=== PATIENT | female | born 1980 | race Caucasian/White ===

== ENCOUNTER 2017-07-23 13:17 | Inpatient (IN) | payer MEDICARE, MEDICAID ==
[~2017-07-23] VITALS: Ht 154.9 cm; Wt 56.2 kg
[~2017-07-23 13:17] MED LIST: ABILIFY; NEURONTIN; PROZAC; XANAX
[2017-07-23 14:09] VITALS: BP 121/67
[2017-07-23] MEDS ORDERED: ZOLPIDEM TARTRATE 10 MG TABLET PO PRN (14:15)
[2017-07-23] MEDS ORDERED: OXCA300T PO (14:31)
[2017-07-23] MEDS ORDERED: CLON.5 PO (14:31)
[2017-07-23] MEDS ORDERED: GABA-529 PO (14:33)
[2017-07-23] MEDS: LORazepam 1 MG TABLET PO PRN (14:48)
[2017-07-23] MEDS: HALOPERIDOL 5 MG TABLET PO PRN (14:48)
[2017-07-23] MEDS: PALIPERIDONE 3 MG ER TABLET PO SCH (17:33)
[2017-07-23 17:37] VITALS: BP 123/65
[2017-07-24 07:09] VITALS: BP 119/67
[2017-07-24 07:40] LABS: BASOPHILS # (AUTO) 0.07 K/uL (0.00-0.20); BASOPHILS % (AUTO) 0.8 % (0.0-2.0); EOSINOPHILS # (AUTO) 0.21 K/uL (0.00-0.70); EOSINOPHILS % (AUTO) 2.52 % (1.0-6.0); HEMATOCRIT 38.8 % (36-46); HEMOGLOBIN 12.7 g/dL (12.0-16.0); LYMPHOCYTES # (AUTO) 3.4 K/uL (1.0-4.8); LYMPHOCYTES % (AUTO) 40.9 % (22.0-44.0); MEAN CORPUSCULAR HEMOGLOBIN 31.6 pg (26.0-34.0); MEAN CORPUSCULAR HGB CONC 32.7 G/dL (31.0-37.0); MEAN CORPUSCULAR VOLUME 97 fL (80-100); MONOCYTES # (AUTO) 0.4 K/uL (0.1-1.0); MONOCYTES % (AUTO) 4.9 % (2.0-9.0); NEUTROPHILS # (AUTO) 4.2 K/uL (1.8-7.7); NEUTROPHILS % (AUTO) 50.9 % (40.0-70.0); PLATELET COUNT (AUTO) 425 K/uL (150-450); RED BLOOD CELL COUNT(AUTO) 4.02 MIL/uL (4.00-5.20); RED CELL DISTRIBUTION WIDTH 14.1 % (11.5-14.5); WHITE BLOOD COUNT (AUTO) 8.3 K/uL (4.5-11.0)
[2017-07-24] MEDS: HALOPERIDOL 5 MG TABLET PO PRN ×2 (08:10→17:11)
[2017-07-24] MEDS: PALIPERIDONE 3 MG ER TABLET PO SCH ×2 (08:10→16:43)
[2017-07-24] MEDS: LORazepam 1 MG TABLET PO PRN ×2 (08:10→16:43)
[2017-07-24 08:13] LABS: HEMOGLOBIN A1C 5.1 % (4.5-6.2)
[2017-07-24 08:48] LABS: ALANINE AMINOTRANSFERASE 20 U/L (12-78); ALBUMIN 3.1 g/dL (3.4-5.0); ANION GAP 6 mmol/L (8-16); ASPARTATE AMINOTRANSFERASE 10 U/L (15-37); BILIRUBIN,TOTAL 0.4 mg/dL (0.1-1.0); CARBON DIOXIDE 30 mmol/L (22-29); CHLORIDE 104 mmol/L (98-107); CHOL/HDL RATIO 4.9 (3.9-5.7); CREATININE 0.83 mg/dL (0.60-1.30); GLOMERULAR FILTR. RATE CALC > 60 mL/min (>60); POTASSIUM 4.8 mmol/L (3.5-5.1); SODIUM SERUM 140 mmol/L (136-145); THYROID STIMULATING HORMONE 0.94 uIU/mL (0.36-3.74); TOTAL PROTEIN, SERUM 6.7 g/dL (6.4-8.2); UREA NITROGEN, BLOOD 18 mg/dL (7-18)
[2017-07-24 16:00] VITALS: BP 101/79
[2017-07-25 06:49] VITALS: BP 100/60
[2017-07-25] MEDS: HALOPERIDOL 5 MG TABLET PO PRN (08:20)
[2017-07-25] MEDS: LORazepam 1 MG TABLET PO PRN ×2 (08:20→18:58)
[2017-07-25] MEDS: PALIPERIDONE 3 MG ER TABLET PO SCH ×2 (08:20→17:00)
[2017-07-25 08:23] VITALS: BP 116/71
[2017-07-25] MEDS: BENZTROPINE MESYLATE 2 MG TABLET PO SCH ×2 (14:19→17:00)
[2017-07-25 16:00] VITALS: BP 109/78
[2017-07-25] MEDS ORDERED: BENZTROPINE MESYLATE 2 MG TABLET PO SCH (17:00)
[2017-07-26 01:14] VITALS: BP 100/60
[2017-07-26] MEDS: LORazepam 1 MG TABLET PO PRN ×2 (02:51→10:29)
[2017-07-26] MEDS: HALOPERIDOL 5 MG TABLET PO PRN ×2 (03:36→16:59)
[2017-07-26] MEDS: BENZTROPINE MESYLATE 2 MG TABLET PO SCH ×2 (09:15→16:59)
[2017-07-26] MEDS: PALIPERIDONE 3 MG ER TABLET PO SCH ×2 (09:16→16:59)
[2017-07-26 10:01] VITALS: BP 89/70
[2017-07-26] MEDS: NICOTINE 21 MG/24 HOUR PATCH TD SCH (14:13)
[2017-07-26 16:01] VITALS: BP 109/68
[2017-07-26] MEDS: HydrOXYzine PAMOATE 25 MG CAPSULE PO PRN (16:59)
[2017-07-27] MEDS: HydrOXYzine PAMOATE 25 MG CAPSULE PO PRN ×3 (00:21→16:00)
[2017-07-27 00:23] VITALS: BP 101/67
[2017-07-27] MEDS: HALOPERIDOL 5 MG TABLET PO PRN ×3 (02:13→16:00)
[2017-07-27 08:54] VITALS: BP 105/66
[2017-07-27] MEDS: BENZTROPINE MESYLATE 2 MG TABLET PO SCH ×2 (08:59→16:56)
[2017-07-27] MEDS: NICOTINE 21 MG/24 HOUR PATCH TD SCH (08:59)
[2017-07-27] MEDS: PALIPERIDONE 3 MG ER TABLET PO SCH ×2 (09:00→16:55)
[2017-07-27 16:02] VITALS: BP 106/65
[2017-07-28] MEDS: HALOPERIDOL 5 MG TABLET PO PRN (00:21)
[2017-07-28 01:52] VITALS: BP 102/71
[2017-07-28] MEDS: PALIPERIDONE 3 MG ER TABLET PO SCH (08:13)
[2017-07-28] MEDS: BENZTROPINE MESYLATE 2 MG TABLET PO SCH (08:13)
[2017-07-28] MEDS: NICOTINE 21 MG/24 HOUR PATCH TD SCH (08:14)
[2017-07-28 08:17] VITALS: BP 126/79
[2017-07-28] MEDS ORDERED: PALIPERIDONE PALMITATE 234 MG/1.5 ML SYRINGE IM SCH (09:00)
[2017-07-28] MEDS ORDERED: PALI6 PO (10:54)
[2017-07-28] MEDS ORDERED: PALI234D IM (11:00)
[2017-07-28] MEDS ORDERED: BENZ2TAB10 PO (11:02)
== END 2017-07-28 13:48 | disposition home or self-care (01) | DRG 885 ==
LOC: EDSTATUS 13:40 → B3A 14:08
PROVIDERS: ADMIT Psychiatry & Neurology Psychiatry; ATTEND Psychiatry & Neurology Psychiatry
DX: F29 Unspecified psychosis not due to a substance or known physiological condition (principal); Z91.19 Patient's noncompliance with other medical treatment and regimen; F15.90 Other stimulant use, unspecified, uncomplicated; F41.9 Anxiety disorder, unspecified; F17.200 Nicotine dependence, unspecified, uncomplicated
CPT/HCPCS: 83036; 84439; 84443

== ENCOUNTER 2018-04-21 20:31 | Emergency (ER) | payer OTHER ==
[~2018-04-21] VITALS: Ht 154.9 cm; Wt 57.0 kg
[~2018-04-21 20:31] MED LIST changes: -ABILIFY; +BENZ2TAB10 PO; -NEURONTIN; +PALI234D IM; +PALI6 PO; -PROZAC; -XANAX
[2018-04-21 21:14] VITALS: BP 105/67
[2018-04-21 23:46] LABS: AMPHET/METH SCREEN,URINE POSITIVE (NEGATIVE); BARBITURATE SCREEN, URINE NEGATIVE (NEGATIVE); BENZODIAZEPINES SCREEN,URINE NEGATIVE (NEGATIVE); CANNABINOID SCREEN,URINE POSITIVE (NEGATIVE); COCAINE SCREEN,URINE NEGATIVE (NEGATIVE); METHADONE SCREEN, URINE NEGATIVE (NEGATIVE); OPIATE SCREEN,URINE NEGATIVE (NEGATIVE); PHENCYCLIDINE SCREEN,URINE NEGATIVE (NEGATIVE)
== END 2018-04-21 21:14 | disposition left against medical advice (07) ==
LOC: EMS 20:32
DX: M25.552 Pain in left hip (principal); F31.9 Bipolar disorder, unspecified; F20.9 Schizophrenia, unspecified; F15.90 Other stimulant use, unspecified, uncomplicated
CPT/HCPCS: 99283

== ENCOUNTER 2018-05-21 22:24 | Emergency (ER) | payer OTHER ==
[~2018-05-21] VITALS: Ht 162.6 cm; Wt 70.0 kg
[2018-05-21 22:34] VITALS: BP 117/65
== END 2018-05-21 23:30 | disposition left against medical advice (07) ==
LOC: EMS 22:26
DX: R06.02 Shortness of breath (principal); Z53.21 Procedure and treatment not carried out due to patient leaving prior to being seen by health care provider